=== PATIENT | female | born 1975 | race Caucasian/White ===

== ENCOUNTER 2023-08-29 17:54 | Emergency (ER) | payer MEDICAID ==
[~2023-08-29] VITALS: Ht 152.4 cm; Wt 75.1 kg
[2023-08-29 18:07] VITALS: BP 119/69; PULSE 111; RESP 20; TEMP 98.1; O2SAT 98
[2023-08-29] MEDS ORDERED: HYDROcodone/APAP 7.5/325 MG 1 TAB PO ONE (18:20)
[2023-08-29] MEDS ORDERED: KETOROLAC 30 MG/ML VIAL IM ONE (18:20)
[2023-08-29] MEDS ORDERED: IBUP-2213 PO (20:01)
[2023-08-29] MEDS ORDERED: ACET-8905 PO (20:01)
[2023-08-29] MEDS ORDERED: LID5T TP (20:01)
== END 2023-08-29 20:15 | disposition home or self-care (01) ==
LOC: MED 17:54
DX: S16.1XXA Strain of muscle, fascia and tendon at neck level, initial encounter (principal); X58.XXXA Exposure to other specified factors, initial encounter; Y93.89 Activity, other specified; Y92.89 Other specified places as the place of occurrence of the external cause; Y99.8 Other external cause status
CPT/HCPCS: 96372; 99283; J1885; Q0163